=== PATIENT | female | born 1995 | race Caucasian/White ===

== ENCOUNTER 2020-04-30 16:00 | Inpatient (IN) | payer SELFPAY ==
[~2020-04-30] VITALS: Ht 162.6 cm; Wt 96.2 kg
[2020-04-30] MEDS ORDERED: PREPLUS CA-FE1 EACH PO (17:50)
[2020-04-30 17:51] VITALS: BP 136/69; Ht 162.6 cm; Wt 96.2 kg
[2020-04-30 18:10] LABS: HEMATOCRIT 37.5 % (36.0-48.0); HEMOGLOBIN 12.2 g/dL (12-16); MCH 30.3 pg (26.0-34.0); MCHC 32.5 g/dL (31.0-37.0); MCV 93.1 fL (80.0-100.0); MEAN PLATELET VOLUME 10.5 fL (7.4-10.4); RBC 4.03 10x6/uL (4.00-5.40); RDW 13.2 % (11.5-14.5); WBC 7.9 10x3/uL (4.8-10.8)
--- NOTE | 2020-05-01 19:15 | NUR ---
REPORT GIVEN BY JAN JIMÉNEZ
[2020-05-01 20:15] VITALS: BP 129/81
--- NOTE | 2020-05-01 20:15 | NUR ---
IN PT ROOM TO DO AN ASSESSMENT. SKIN IS WARM AND DRY. COLOR PINK. NO C/O PAIN. FUNDUS FIRM WITH MASSAGE AND BLEEDING IS MEDIUM. PT IS UP AND ABOUT IN HER ROOM. HEART SOUNDS WNL, RESPIRATIONS EVEN AND UNLABORED, LUNGS SOUND CLEAR, AND BS HEARD IN ALL QUADS. HER IS IN THE ROOM. PT HAS A LEFT HAND SALINE LOCK. SHE REQUESTED IODINE AND A SQUIRT BOTTLE. GOT HER SOME FRESH WATER TO START THE SHIFT. PT REQUEST LINENS FOR THE COUCH WHICH WERE TAKEN TO HIM. THERE ARE NO OTHER NEEDS AT THIS TIME.
--- NOTE | 2020-05-01 21:46 | NUR ---
IN PT ROOM TO TAKE MEDICATION. NO C/P AND NO NEEDS
--- NOTE | 2020-05-02 | NUR ---
PT, AND BABY ARE ALL SLEEPING. I DROPPED OFF SOME JESSE CRACKERS FOR PT PER HER REQUEST. NO C/O OF NEEDS.
[2020-05-02 00:30] VITALS: BP 139/85
--- NOTE | 2020-05-02 00:30 | NUR ---
PT WAS TRYING TO BREAST FEED. NO C/O OR NEEDS AT THIS TIME
--- NOTE | 2020-05-02 04:11 | NUR ---
PT IS SLEEPING. NO C/O OR NEEDS NOW
[2020-05-02 05:51] LABS: BASOPHILS 0.1 % (0-2); EOSINOPHILS 0.2 % (0-7); HEMATOCRIT 35.6 % (36.0-48.0); HEMOGLOBIN 11.5 g/dL (12-16); IMMATURE GRANULOCYTES 0.3 % (0-5); LYMPHOCYTES 26.3 % (15-50); MCH 30.1 pg (26.0-34.0); MCHC 32.3 g/dL (31.0-37.0); MCV 93.2 fL (80.0-100.0); MEAN PLATELET VOLUME 10.6 fL (7.4-10.4); MONOCYTES 6.7 % (2-11); NEUTROPHILS 66.4 % (40-80); PLATELET COUNT 181 10x3/uL (130-400); RBC 3.82 10x6/uL (4.00-5.40); RDW 13.4 % (11.5-14.5); WBC 9.3 10x3/uL (4.8-10.8)
--- NOTE | 2020-05-02 06:13 | NUR ---
SITTING UP IN BED WITH BABY. NO C/O PAIN. NO NEEDS AT THIS TIME.
[2020-05-02 08:09] VITALS: BP 128/80
--- NOTE | 2020-05-02 08:19 | NUR ---
SITTING UP IN BED HOLDING . VERBAL RESPONSES APPRO TO QUESTIONS. UP AND ABOUT DESIRED. STATES VOIDING WITHOUT ISSUES. DENIES NEEDS. FUNDUS U2/FIRM. SCANT LOCHIA NOTED ON PAD. ATE 90% REG DIET FOR BREAKFAST.
--- NOTE | 2020-05-02 08:26 | NUR ---
REQUESTING SALINE LOCK BE REMOVED. SALINE LOCK REMOVED- CATH TIP INTACT. PRESSURE HELD AND BANDAIDE APPLIED.
--- NOTE | 2020-05-02 09:39 | NUR ---
DR GONZALEZ HERE TO SEE PT.
--- NOTE | 2020-05-02 12:00 | NUR ---
UP AND ABOUT IN ROOM. DENIES NEEDS. EXPLAINED THAT CAN PROCEED WITH DISCHARGE AFTER PEDI SEE .
--- NOTE | 2020-05-02 13:00 | NUR ---
REPORT TO Nubia CHAPARRO RN.
--- NOTE | 2020-05-02 13:23 | NUR ---
ORDERS RECEIVED FROM Nubia LAWTON RN.
--- NOTE | 2020-05-02 14:09 | NUR ---
ROUNDS MADE. PT. LAYING IN BED WATCHING TV. GUEST AT BEDSIDE; IN NBN. NO REQUEST OR CONCERNS AT THIS TIME.
--- NOTE | 2020-05-02 16:41 | NUR ---
REVIEWED DISHCARGE INSTRUCTIONS. PT STATES UNDERSTANDING. PT. DISHCARGED HOME VIA WHEELCHAIR TO PRIVATE VEHICLE.
== END 2020-05-02 16:42 | disposition home or self-care (01) | DRG 807 ==
LOC: D.LD 16:00
PROVIDERS: ADMIT Obstetrics & Gynecology; ATTEND Obstetrics & Gynecology
PROC: 10E0XZZ Delivery of Products of Conception, External Approach (ICD-10-PCS; principal; 2020-05-01)
PROC: 10907ZC Drainage of Amniotic Fluid, Therapeutic from Products of Conception, Via Natural or Artificial Opening (ICD-10-PCS; 2020-05-01)
DX: O80 Encounter for full-term uncomplicated delivery (principal); Z37.0 Single live birth; Z3A.38 38 weeks gestation of pregnancy